=== PATIENT | female | born 1945 | race Caucasian/White ===

== ENCOUNTER → 2018-07-01 | Outpatient (CLI) | payer OTHER ==
[~2018-07-01] VITALS: Ht 162.6 cm; Wt 68.0 kg
[~2018-07-01] MED LIST: ASPIRIN325 PO; PROTONIX40 M2 PO; VITAMIN B-12500 MCG PO; VITAMIN D31000 UNIT PO
--- NOTE | 2018-07-02 15:05 | PATH ---
[facility] [address] [place] [address] PATHOLOGY RPT PROCEDURE Name: BRITTANY LOPES UZIEL Room #: REG Yesi Blackman.#: [id number] ������������������ Admission: 07/01/18 ������������������ Date of : 43 Discharge: Report #: [id number] Path Case #: [id number] [facility] Accession Number: [id number] . 01 Material submitted: . PART A: esophagus - ESOPHAGITIS BIOPSY PART B: colon - COLON POLYP MID TRANSVERSE. Modifiers: mid, transverse . 01 Clinical history: . Abdominal pain, altered bowel habits, esophagitis, diverticulosis, colon polyp, hemorrhoids . 02 Diagnosis: A. Squamous mucosa, esophagitis, endoscopic biopsy: - Mild active esophagitis associated with features of reflux esophagitis. - Negative for increase in intraepithelial eosinophils. - Negative for intestinal metaplasia or dysplasia. . B. Polyp, colon polyp mid transverse, endoscopic biopsy: - Tubular adenoma. - Negative for high-grade dysplasia. (IUV:ksenia; 07/02/2018) QMS/07/02/2018 . 02 Electronically signed: . Kaylyn Cherry MD, Pathologist NPI- [id number] . 01 Gross description: . A. The specimen is received in formalin, labeled "Brittany Lopes, esophagitis biopsy", are three smith-berger mucosal tissues measuring 0.2 cm, 0.4 cm and 0.6 cm in greatest dimension, entirely submitted in A1. . B. The specimen is received in formalin, labeled "Brittany Lopes, colon polyp, mid transverse", is an elongated smith, partially hemorrhagic mucosal tissue measuring 1.2 x 0.3 x 0.1 cm, inked black, serially sectioned and entirely submitted in B1. (SWS; 07/01/2018) SHS/ . Pathologist provided ICD-10: K21.0, D12.0 . 02 CPT . 076953, 620674 Specimen Comment: A courtesy copy of this report has been sent to Specimen Comment: [phone], [place] [address] PATHOLOGY RPT PROCEDURE Name: BRITTANY LOPES UZIEL Room #: REG FADIA Casillas#: [id number] ������������������ Admission: 07/01/18 ������������������ Date of : 43 Discharge: Report #: [id number] Path Case #: [id number] Specimen Comment: Report sent to / DR DANIEL Performed at: [address] [facility] [address], [place], [place] [id number] MD John Perez MD Phone: [phone] Performed at: [address] [facility] [id number] MD Kaylyn Cherry MD Phone: [phone]
== END | disposition home or self-care (01) ==
LOC: GI 06:43
DX: D12.3 Benign neoplasm of transverse colon (principal); K57.30 Diverticulosis of large intestine without perforation or abscess without bleeding; K21.0 Gastro-esophageal reflux disease with esophagitis; K44.9 Diaphragmatic hernia without obstruction or gangrene; K31.89 Other diseases of stomach and duodenum; N28.1 Cyst of kidney, acquired; Z88.0 Allergy status to penicillin; Z90.49 Acquired absence of other specified parts of digestive tract; Z98.890 Other specified postprocedural states; Z79.899 Other long term (current) drug therapy; Z85.820 Personal history of malignant melanoma of skin
CPT/HCPCS: 62110; 62900